=== PATIENT | male | born 1980 | race Caucasian/White ===

== ENCOUNTER 2017-02-21 10:04 | Emergency (ER) | payer OTHER ==
--- NOTE | 2017-02-21 12:43 | ED CLINICAL REPORT ---
Clinical Report - Physicians/Mid Levels [facility] [address] [place] [address] 02/21/2017 10:07 Patient: CHA HOFFMAN Time Seen: 10:38 Feb 21 2017. Arrived- By private vehicle. Historian- patient. CPT: ER phys charges level 4 (#[id number]). HISTORY OF PRESENT ILLNESS Chief Complaint: "GOT THE SHAKES". ; Has been on a 2 week binge. Wants to stop drinking. Pt in stating that he wants help with alcohol withdrawl. Pt states he is an alcoholicwas dry for 1 1/2 years and started again 2 weeks ago. Pt had been a heroin additct before that and switched to alcohol to get off the heroin). Symptoms started yesterday. Duration of substance abuse- about 2 weeks. Substances abused: Alcohol and marijuana. Last drink less than 12 hours ago. The patient has had nausea and tremors. No vomiting, diarrhea, abdominal pain or agitation. Not confused. The symptoms are described as moderate. No injuries noted. Similar symptoms previously: As bad. Withdrawal from narcotics or alcohol. Recent medical care: Not recently seen/assessed. REVIEW OF SYSTEMS No headache, dizziness, weakness, chest pain or palpitations. No black stools, sore throat, cough or difficulty breathing. No skin abscess or rash, joint pain, enlarged lymph nodes or epistaxis. No hematuria. No difficulty walking. Small amount of BRB in stool this morning. All systems otherwise negative, except as recorded above. PAST HISTORY Lifestyle / Substance Problems. Nasal Fracture. Scleral Laceration. Narcotic Withdrawal. Epistaxis. Syncope. Anxiety Reaction. Additional Surgeries: no known surgeries. Medications: None. Allergies: No Known Drug Allergy. SOCIAL HISTORY Heavy tobacco smoker (cigarette)- 1 pack per day. Alcohol use. Patient is a longstanding alcoholic. History of drug use: marijuana. ADDITIONAL NOTES The nursing notes have been reviewed. PHYSICAL EXAM Vital Signs: 02/21/2017 10:16 BP: 137/94. HR: 107. RR: 18. O2 saturation: 99%. Temp: 97.7 F. Pain level now: 5/10. Appearance: Alert. Patient in mild distress. Head: Head atraumatic. Eyes: Pupils equal, round and reactive to light. ENT: Normal ENT inspection. Airway intact. Dry mucous membranes present. Pharynx normal. Neck: Normal inspection. Neck supple. CVS: Tachycardia. Heart sounds normal. Pulses normal. Respiratory: No respiratory distress. Breath sounds normal. Abdomen: Soft. Mild tenderness in the epigastric area. Back: Normal inspection. Rectal: Rectal exam normal. Skin: Skin warm. Normal skin color. No rash. Extremities: Extremities exhibit normal ROM. No lower extremity edema. Neuro: Alert. Oriented X 3. Mood/affect normal. Speech normal. Cranial nerves normal (as tested). No cerebellar findings. No motor deficit. No sensory deficit. Reflexes normal. (Mild tremor at rest that is worse with intention.). LABS, X-RAYS, AND EKG Laboratory Tests: UA-Culture if indicated: (EMILY: 02/21/2017 11:50) ( [facility] 02/21/2017 12:24) Final results Test Result Flag Units (Reference) URINE COLOR YELLOW URINE APPEARANCE CLEAR URINE GLUCOSE NEGATIVE (NEGATIVE) URINE BILIRUBIN NEGATIVE (NEGATIVE) URINE KETONE NEGATIVE (NEGATIVE) URINE SPECIFIC GRAVITY <= 1.005 L (1.010-1.030) URINE PH 5.5 (5.0-8.0) URINE PROTEIN NEGATIVE (NEGATIVE) URINE UROBILINOGEN 0.2 EU/dL (0.2-1.0) URINE NITRITE NEGATIVE (NEGATIVE) URINE BLOOD NEGATIVE (NEGATIVE) URINE LEUK ESTERASE NEGATIVE (NEGATIVE) URINE RBC NONE SEEN rbc/hpf (0-1) URINE WBC NONE SEEN wbc/hpf (0-1) URINE EPITHELIAL CELLS NONE SEEN EPI/hpf (0-5) URINE BACTERIA NONE SEEN (NONE SEEN) URINE COMMENT CULT NOT INDICATED URINE CULTURES ARE SET-UP BASED ON THE FOLLOWING CRITERIA:POSITIVE NITRITEPOSITIVE LEUKOCYTE ESTERASEGREATER THAN 10 WHITE BLOOD CELLSMODERATE (2+) OR GREATER BACTERIA CBC w Diff: (EMILY: 02/21/2017 10:35) ( [facility] 02/21/2017 11:01) Final results Test Result Flag Units (Reference) WHITE BLOOD COUNT 6.1 K/uL (4.5-11.5) RED BLOOD COUNT 5.26 M/uL (4.50-5.90) HEMOGLOBIN 15.6 gm/dL (13.5-17.5) HEMATOCRIT 46.4 % (41.0-53.0) MEAN CELL VOLUME 88 fL (80-100) MEAN CORPUSCULAR HGB 30 pg (26-34) MEAN CORPUSCULAR HGB CONC 34 g/dL (31-37) RED CELL DISTRIBUTION WIDTH 14.0 % (11.6-14.8) PLATELET COUNT 206 K/uL (150-400) NEUTROPHIL % 69.0 % (50-75) LYMPH % 21.9 L % (25-40) MONO % 6.5 % (3-14) EOSINOPHIL % 2.0 % (0-4) BASOPHIL % 0.6 % (0-2) PT with INR: (EMILY: 02/21/2017 10:35) ( [facility] 02/21/2017 11:20) Final results Test Result Flag Units (Reference) INR 0.9 (0.8-1.2) Low Intensity Therapy: INR 1.5-2.0 PT range 18.5-23.1Mod.Intensity Therapy: INR 2.0-3.0 PT range 23.1-31.5High Intensity Therapy: INR 2.5-3.5 PT range 27.4-35.5High Intensity Therapy 2: INR 3.0-4.0 PT range 31.5-39.3 Urine Drug Screen: (EMILY: 02/21/2017 11:50) ( [facility] 02/21/2017 12:19) Final results Test Result Flag Units (Reference) AMPHETAMINE/METHAMPHETAMINE NEGATIVE (NEGATIVE) BARBITURATE NEGATIVE (NEGATIVE) BENZODIAZEPINE NEGATIVE (NEGATIVE) CANNABINOID NEGATIVE (NEGATIVE) COCAINE NEGATIVE (NEGATIVE) ECSTASY NEGATIVE (NEGATIVE) METHADONE NEGATIVE (NEGATIVE) OPIATE NEGATIVE (NEGATIVE) The urine drug screen is a qualitative screening test fordrug overdose and abuse. All screen results should beconsidered as presumptive.Drugs screened for are as follows:BenzodiazepinesCocaineAmphetamines/MetamphetaminesTHC (Tetrahydrocannabinol)OpiatesBarbituratesEcstasyMethadonePositive results are unconfirmed. For confirmation, notifythe lab for the specimen to be sent to the reference lab.All confirmations must be performed by a differentmethodology.The ingestion of natural herbal and plant productscontaining Ephedra/Ephedra metabolites can produce in urineone or more substances capable of cross reacting withamphetamine/methamphetamine immunoassays. These testsprovide a preliminary result only. A more specificalternative chemical method must be used to obtain aconfirmed analytical result. CHEM 13 PANEL: (EMILY: 02/21/2017 10:35) ( MsgRcvd 02/21/2017 11:59) Final results Test Result Flag Units (Reference) GLUCOSE 104 mg/dL (70-110) BUN 5 L mg/dL (7-18) CREATININE 0.7 mg/dL (0.6-1.3) Estimated GFR >60 mL/min Estimated GFR- >60 mL/min Note: Persistent reduction over 3 months in eGFR<60 mL/min/1.73 m2 defines CKD. Patients with eGFR values>=60 mL/min/1.73 m2 may also have CKD if evidence ofpersistent proteinuria. Additional information may be foundat www.kidney.org. SODIUM 145 mmol/L (136-145) POTASSIUM 4.2 mmol/L (3.5-5.1) CHLORIDE 107 mmol/L (98-107) CARBON DIOXIDE 25 mmol/L (21-32) CALCIUM 8.9 mg/dL (8.5-10.1) TOTAL PROTEIN 7.2 g/dL (6.4-8.2) ALBUMIN 3.9 g/dL (3.3-5.0) BILIRUBIN, TOTAL 0.4 mg/dL (0.0-1.0) ALKALINE PHOSPHATASE 84 U/L (46-116) AST (SGOT) 139 H U/L (15-37) ALT (SGPT) 63 U/L (12-78) MAGNESIUM 2.3 mg/dL (1.8-2.4) CPK 167 U/L (24-260) TROPONIN I <0.05 ng/mL (0.00-1.5) TROPONIN REFERENCE RANGE:<0.1 NEGATIVE0.1-1.5 INDETERMINANT>1.5 POSITIVE ETHYL ALCOHOL 264 H mg/dL (3-10) . PROGRESS AND PROCEDURES Course of Care: IV NS banana bag with thiamine 100 mg IV Clonidine 0.2mg patch Ativan 0.5 mg IV Patient has been in rehabilitation in the past. Has been to AA in the past as well. Has not been to AA recently. Patient/family counseled. Disposition: Discharged. Condition: stable. CLINICAL IMPRESSION Uncomplicated alcohol intoxication with alcohol dependence. No alcohol intoxication with delirium. Alcohol withdrawal with irritability and agitation. No delirium, hallucinations or delirium tremens. Acute alcoholic gastritis. No hemorrhagic gastritis. INSTRUCTIONS Stay with responsible adult family member (or other responsible adult). (Get to [facility] detox as soon as they have a bed. Get to AA 3 times a week. Wear clonidine patch for 1 week to help stop withdrawal.). Warnings: Further evaluation is necessary. GENERAL WARNINGS: Return or contact your physician immediately if your condition worsens or changes unexpectedly, if not improving as expected, or if other problems arise. Prescription Medications: Ativan 1 mg: take 1 orally every 6 hours as needed. Dispense ten (10). No refill. Substitution is permissible. (use as needed to slow down the tremors.) Carafate 1 gm tablets: take 1 orally four times daily (1 hour before meals and at bedtime). Dispense sixty (60). No refills. Substitution is permissible. Prilosec 20 mg capsules: Take 1 capsule orally once daily. Dispense fifteen (15). No refills. Substitution is permissible. Understanding of the discharge instructions verbalized by patient. Follow-up with: Jose Miller MD, [facility], , [address] [facility] [address] Follow up in one week. Call for an appointment. (Electronically signed by Jose Johnston MD 02/22/2017 7:43)
--- NOTE | 2017-02-21 12:43 | ED ORDER SUMMARY ---
..... Patient: CHA HOFFMAN OrderSheet [facility] VisitID: [id number] [address] [place] [address] 36y, M Registration Date/Time: 02/21/2017 ORDER SHEET Weight: 68.0 kg (stated) Allergies: No Known Drug Allergy GENERAL ORDERS: Cardiac Panel Stat (:02/21/2017 Eddy LINDSEY) (Ack 10:49 Valerio ER Tech1) (11:05 DDean R.N.) PT with INR Urgent (:02/21/2017 Eddy LINDSEY) (Ack 10:49 Valerio MARTINEZ Tech1) (11:05 DDean R.N.) UA-Culture if indicated Urgent (:02/21/2017 Eddy LINDSEY) (Ack 10:49 Valerio Galindo1) (12:04 DDean R.N.) Urine Drug Screen Urgent (:02/21/2017 Eddy LINDSEY) (Ack 10:49 Valerio MARTINEZ Tech1) (12:04 DDean R.N.) Ethyl Alcohol Urgent (:02/21/2017 Eddy LINDSEY) (Ack 10:49 Valerio MARTINEZ Tech1) (11:05 DDean R.N.) MEDICATION ORDERS: Clonidine Topical 0.2 mg (NOW) (:02/21/2017 Eddy LINDSEY) (Ack 10:51 DDean R.N.) (11:05 DDean R.N.) IV FLUIDS: IV NS with Normal Saline 1 Liter, Multivitamin Concentrate Intravenous 1 amp/L, Thiamine HCl 100 mg/L: initial bolus 1000 mL (1000 mL/hr), then 150 mL/hr for 4h (NOW); Routine (10:02/21/2017 Eddy LINDSEY) (Ack 10:51 DDean R.N.) (11:15 DDean R.N.) Ativan IV 0.5 mg (NOW) (:02/21/2017 Eddy LINDSEY) (Ack 10:51 DDean R.N.) (11:06 DDean R.N.) ORDER SHEET NOTES: [Electronically signed by Shelly Oh R.N. (13:17 02/21/2017)] [Electronically signed by Jose Johnston MD (07:43 02/22/2017)] [Electronically locked/signed by Shelly Oh R.N. (13:17 02/21/2017)]
--- NOTE | 2017-02-21 12:43 | ED ORDER SUMMARY ---
..... Patient: CHA HOFFMAN OrderSheet [facility] VisitID: [id number] [address] [place] [address] 36y, M Registration Date/Time: 02/21/2017 ORDER SHEET Weight: 68.0 kg (stated) Allergies: No Known Drug Allergy GENERAL ORDERS: Cardiac Panel Stat (:02/21/2017 Eddy LINDSEY) (Ack 10:49 Valerio ER Tech1) (11:05 DDean R.N.) PT with INR Urgent (:02/21/2017 Eddy LINDSEY) (Ack 10:49 Valerio MARTINEZ Tech1) (11:05 DDean R.N.) UA-Culture if indicated Urgent (:02/21/2017 Eddy LINDSEY) (Ack 10:49 Valerio Galindo1) (12:04 DDean R.N.) Urine Drug Screen Urgent (:02/21/2017 Eddy LINDSEY) (Ack 10:49 Valerio MARTINEZ Tech1) (12:04 DDean R.N.) Ethyl Alcohol Urgent (:02/21/2017 Eddy LINDSEY) (Ack 10:49 Valerio MARTINEZ Tech1) (11:05 DDean R.N.) MEDICATION ORDERS: Clonidine Topical 0.2 mg (NOW) (:02/21/2017 Eddy LINDSEY) (Ack 10:51 DDean R.N.) (11:05 DDean R.N.) IV FLUIDS: IV NS with Normal Saline 1 Liter, Multivitamin Concentrate Intravenous 1 amp/L, Thiamine HCl 100 mg/L: initial bolus 1000 mL (1000 mL/hr), then 150 mL/hr for 4h (NOW); Routine (10:02/21/2017 Eddy LINDSEY) (Ack 10:51 DDean R.N.) (11:15 DDean R.N.) Ativan IV 0.5 mg (NOW) (:02/21/2017 Eddy LINDSEY) (Ack 10:51 DDean R.N.) (11:06 DDean R.N.) ORDER SHEET NOTES: [Electronically signed by Shelly Oh R.N. (13:17 02/21/2017)] [Electronically signed by Jose Johnston MD (07:43 02/22/2017)] [Electronically locked/signed by Shelly Oh R.N. (13:17 02/21/2017)]
--- NOTE | 2017-02-21 12:43 | ED NURSING NOTES ---
Clinical Report - Nurses [facility] [address] [place] [address] 02/21/2017 10:07 Patient: CHA HOFFMAN TRIAGE Triage time 1012. Acuity: LEVEL 3. Chief Complaint: (Pt in stating that he wants help with alcohol withdrawl. Pt states he is an alcoholicwas dry for 1 1/2 years and started again 2 weeks ago. Pt had been a heroin additct before that and switched to alcohol to get off the heroin). HUGO COMA SCORE: Hugo Coma Scale: 15- eyes open spontaneously (4); best verbal response- oriented x 4 (5); best motor response- obeys commands (6). --10:25 Shelly Oh R.N. 10:16 02/21/17. BP: 137/94. HR: 107. RR: 18. O2 saturation: 99%. Temp: 97.7 F. Pain level now: 03/13. --10:25 Shelly Oh R.N. Weight: 68 kg stated. Height/Length: 71 inches Per Patient. BMI: 20.9. --10:16 Shelly Oh R.N. Medications None. --10:25 Shelly Oh R.N. Allergies No Known Drug Allergy. --10:25 Shelly Oh R.N. History Arrived by private vehicle. Historian: patient. Primary physician (Paul). ( Is willing to go to an in-hospital program). SURGERY HX: No history of previous surgery. SOCIAL HX: Heavy tobacco smoker (cigarette)- 1 pack per day. Alcohol use; consumes 12-pack of beer a day. History of drug use: marijuana. --10:25 Shelly Oh R.N. ( Pt states he has been having abd pain x 2 days "and I'm worried about my liver" pt denies N/V, did have blood in stool this am. also worried about tremors). --10:29 Shelly Oh R.N. 10:16. SELF HARM ASSESSMENT: A self harm assessment was performed. The patient answered "yes" to the question "Have you recently felt down, depressed, or hopeless?" and "Have you noticed less interest or pleasure in doing things?" and "no" to the question "Do you have thoughts of harming or killing yourself?", "Are you here because you tried to hurt yourself?", "Have you ever tried to hurt yourself before today?", "Have you recently had thoughts about harming or killing others?" and "Do you have any dangerous items in your possession?". --13:15 Shelly Oh R.N. PROBLEMS: Lifestyle / Substance Problems. Nasal Fracture. Scleral Laceration. Narcotic Withdrawal. Epistaxis. Syncope. Anxiety Reaction. --10:18 Shelly Oh R.N. ADDITIONAL SURGERIES: no known surgeries. Interventions ID band on patient. To treatment room. --10:25 Shelly Oh R.N. PHYSICAL ASSESSMENT 10:12. Ambulatory to room. Patient gowned. GENERAL / NEURO / PSYCH: Alert. Oriented X 4. Appears in no acute distress. Appears anxious. HEENT: Mucous membranes are pink. RESPIRATORY: Respirations not labored. CVS: Capillary refill less than 2 seconds. GI / : ( blood in stool this am). Abdomen soft. Abdominal tenderness. SKIN: Skin is warm and dry. --10:29 Shelly Oh R.N. NURSING PROGRESS NOTES 10:12. Patient gowned. Head of bed elevated. Reassurance given. Patient identifiers checked. Call light placed in reach. Side rails up. Bed placed in lowest position. Patient ready for evaluation- chart flagged. --10:26 Shelly Oh R.N. 10:40 02/21/2017 Site #1 started via IV in the left forearm with an 20g angiocath, with aseptic technique and good blood return; one attempt. Blood drawn: rainbow set. Labeled in the presence of the patient and sent to the lab. Saline lock flushed with 10 mL saline. --10:49 Shelly Oh R.N. 11:00 02/21/2017 Clonidine Topical Patch/Pad 0.2 mg. Applied to the left upper arm. --11:05 Shelly Oh R.N. 11:00 02/21/2017 Ativan (LORazepam) IVP 0.5 mg given over 1 minute(s) via site #1. Sedative warning given to the patient. IV patency established. IV site checked: no pain, redness, or swelling. IV flushed thoroughly pre- and post-medication administration. IVP given by RN. --11:06 Shelly Oh R.N. 11:15 02/21/2017 Started bag #1 1000 mL IV Fluids IV NS (Saline); at 1000 mL/hr over 1 hour(s) via site #1 via IV pump. IV patency established. IV site checked: no pain, redness, or swelling. IV flushed thoroughly pre- and post-medication administration (Thiamine 100mg, 1 amp multivits, added to liter by Pharmacy). --11:15 Shelly Oh R.N. 11:15 resting quietly, talking with sister on phone. --11:35 Shelly Oh R.N. 11:30 02/21/17. BP: 118/68. HR: 100. RR: 16. O2 saturation: 100%. Temp: deferred. Pain level now: 5/10. Additional comments: resting quietly in darkened room . --12:03 Shelly Oh R.N. 1150 Up to Bedside, voided 600cc light yellow urine, UA to lab. Patient ID band checked for patient name and birthdate: patient confirmed. Clean catch urine collected with return of yellow-colored clear urine; sample sent to lab for urinalysis, culture and drug screen. Specimen labeled in the presence of the patient. --12:04 Shelly Oh R.N. 12:20 02/21/2017 IV Fluids IV NS Bag Change: bag #1 infused. Total amount infused: 1000. STARTED bag #2 (1000 mL) at 150 mL/hr via IV pump. IV patency established. IV site checked: no pain, redness, or swelling. IV flushed thoroughly. --12:23 Shelly Oh R.N. 12:30. ( ERMD in to do rectal exam. Quiac Neg). --12:36 Shelly Oh R.N. 12:50 02/21/2017 Site #1 removed upon discharge. Bandaid applied. --13:16 Shelly Oh R.N. 12:50 02/21/2017 IV Fluids IV NS Discontinued: bag #2 STOPPED upon discharge. Total amount infused: 75 mL. IV patency established. IV site checked: no pain, redness, or swelling. IV flushed thoroughly. --13:16 Shelly Oh R.N. DISPOSITION / DISCHARGE 13:00. Condition at departure: improved and stable. No learning barriers present. Discharge instructions provided and reviewed with the patient. Reviewed medication(s) (ativan, prilosec, carafate). Reviewed referrals ([facility], [facility]). Patient verbalized understanding. Written instructions provided in Guamanian. The patient was discharged home and unaccompanied at time of discharge. He left the Emergency Department ambulatory and via (pt states he will walk home (less than 10 min)). HUGO COMA SCORE: Hugo Coma Scale: 15- eyes open spontaneously (4); best verbal response- oriented x 4 (5); best motor response- obeys commands (6). --13:08 Shelly Oh R.N. 13:00 02/21/17. BP: 112/67. HR: 96. RR: 16. O2 saturation: 97% on room air. Temp: deferred. Pain level now: 12/14. --13:08 Shelly Oh R.N. Locked/Released at 02/21/2017 13:17 by Shelly Oh R.N.
--- NOTE | 2017-02-22 07:43 | ED MED RECONCILIATION SUMMARY ---
Patient: CHA HOFFMAN Medication Reconciliation Report [facility] VisitID: [id number] [address] [place] [address] 36y, M Registration Date/Time: 02/21/2017 Weight: 68.0 kg Height/Length: 71 in. BMI: 20.9 ALLERGIES: No Known Drug Allergy The patient's Home Medications are listed below: NONE. The source(s) of the original Home Medication information: Not obtained. The following Medications were given to the patient in the Emergency Department: Clonidine [Topical] Topical 0.2 mg, administered: 02/21/2017 11:00:00 AM Ativan [IVP] IVP 0.5 mg, administered: 02/21/2017 11:00:00 AM IV NS IV Fluids bolus 0, then 1000 mL/hr, administered: 02/21/2017 11:15:00 AM The following Medications were prescribed to the patient: Ativan 1 mg: take 1 orally every 6 hours as needed. Dispense ten (10). No refill. Substitution is permissible.(use as needed to slow down the tremors.) -- Jose Johnston MD Carafate 1 gm tablets: take 1 orally four times daily (1 hour before meals and at bedtime). Dispense sixty (60). No refills. Substitution is permissible. -- Jose Johnston MD Prilosec 20 mg capsules: Take 1 capsule orally once daily. Dispense fifteen (15). No refills. Substitution is permissible. -- Jose Johnston MD
--- NOTE | 2017-02-22 07:43 | ED MED RECONCILIATION SUMMARY ---
Patient: CHA HOFFMAN Medication Reconciliation Report [facility] VisitID: [id number] [address] [place] [address] 36y, M Registration Date/Time: 02/21/2017 Weight: 68.0 kg Height/Length: 71 in. BMI: 20.9 ALLERGIES: No Known Drug Allergy The patient's Home Medications are listed below: NONE. The source(s) of the original Home Medication information: Not obtained. The following Medications were given to the patient in the Emergency Department: Clonidine [Topical] Topical 0.2 mg, administered: 02/21/2017 11:00:00 AM Ativan [IVP] IVP 0.5 mg, administered: 02/21/2017 11:00:00 AM IV NS IV Fluids bolus 0, then 1000 mL/hr, administered: 02/21/2017 11:15:00 AM The following Medications were prescribed to the patient: Ativan 1 mg: take 1 orally every 6 hours as needed. Dispense ten (10). No refill. Substitution is permissible.(use as needed to slow down the tremors.) -- Jose Johnston MD Carafate 1 gm tablets: take 1 orally four times daily (1 hour before meals and at bedtime). Dispense sixty (60). No refills. Substitution is permissible. -- Jose Johnston MD Prilosec 20 mg capsules: Take 1 capsule orally once daily. Dispense fifteen (15). No refills. Substitution is permissible. -- Jose Johnston MD
--- NOTE | 2017-02-22 07:43 | ED MAR SUMMARY ---
..... Medication Administration Record [facility] [address] [place] [address] Patient: CHA HOFFMAN Visit ID: [id number] 36y, M Weight: 68.0 kg Height/Length: 71 in BMI: 20.9 ALLERGIES: No Known Drug Allergy Given 11:00 02/21/2017 Shelly Oh R.N. Medication Administered: CLONIDINE [TOPICAL], Dose: 0.2 mg Patch/Pad Topical. Medication Ordered: Clonidine Topical 0.2 mg (NOW). Given 11:00 02/21/2017 Shelly Oh R.N. Medication Administered: ATIVAN [IVP] (LORAZEPAM), Dose: 0.5 mg IVP over 1 minute(s), Site: #1 left forearm. Medication Ordered: Ativan IV 0.5 mg (NOW). Start 11:15 02/21/2017 Shelly Oh R.N., Stop 12:50 02/21/2017 Shelly Oh R.N. Medication Administered: IV NS (SALINE), Dose: IV Fluids over 1 hour(s), Rate: 1000 mL/hr, Dispensed: 1000 mL bag, Site: #1 left forearm. Medication Ordered: IV NS with Normal Saline 1 Liter, Multivitamin Concentrate Intravenous 1 amp/L, Thiamine HCl 100 mg/L: initial bolus 1000 mL (1000 mL/hr), then 150 mL/hr for 4h (NOW); Routine.
--- NOTE | 2017-02-22 07:43 | ED DISCHARGE INSTRUCTIONS ---
Patient: CHA HOFFMAN General Instructions [facility] VisitID: [id number] [address] [place], [place] [id number] 36y, M Registration Date/Time: 02/21/2017 Uncomplicated alcohol intoxication with alcohol dependence. No alcohol intoxication with delirium. Alcohol withdrawal with irritability and agitation. No delirium, hallucinations or delirium tremens. Acute alcoholic gastritis. No hemorrhagic gastritis. INSTRUCTIONS Stay with responsible adult family member (or other responsible adult). (Get to [facility] as soon as they have a bed. Get to AA 3 times a week. Wear clonidine patch for 1 week to help stop withdrawal.). Warnings: Further evaluation is necessary. GENERAL WARNINGS: Return or contact your physician immediately if your condition worsens or changes unexpectedly, if not improving as expected, or if other problems arise. Prescription Medications: Ativan 1 mg: take 1 orally every 6 hours as needed. Dispense ten (10). No refill. Substitution is permissible. (use as needed to slow down the tremors.) Carafate 1 gm tablets: take 1 orally four times daily (1 hour before meals and at bedtime). Dispense sixty (60). No refills. Substitution is permissible. Prilosec 20 mg capsules: Take 1 capsule orally once daily. Dispense fifteen (15). No refills. Substitution is permissible. Understanding of the discharge instructions verbalized by patient. Follow-up with: Jose Miller MD, [facility], , [address] [place] [address] Follow up in one week. Call for an appointment. ADDITIONAL INFORMATION Alcohol Intoxication Alcohol intoxication occurs when you drink alcohol faster than your liver can remove it from your system. Alcohol intoxication affects your judgment and coordination. Very high blood alcohol levels can cause coma, very slow breathing and even . If you drink alcohol every day, this may gradually cause permanent damage to your liver, brain, heart, pancreas and other organs. Alcohol use during may cause permanent damage to the growing baby. Home Care: Do not drink any more alcohol. DO NOT DRIVE until all effects of the alcohol have worn off. Get lots of rest over the next few days. Drink plenty of water and other non-alcoholic liquids. Try to eat regular meals. If you have been drinking heavily on a daily basis, you may go through alcohol withdrawl. This is also called the shakes or DTs. The usual symptoms last 3 to 4 days and may include nervousness, shakiness, nausea, sweating or sleeplessness. During this time, it is best that you stay with family or friends who can help and support you. You can also admit yourself to a residential detox program. If your symptoms are severe, contact your doctor for medicines to help. Follow Up: If alcohol is causing a problem in your life, these and other organizations can help you: [employer] offers support through a self-help fellowship. There are no dues or fees. See the Yellow Pages and call for time and place of meetings. www.aa.org [employer] offers support to families of alcohol users. 427.593.5927 www.al-anon.org [employer] [place] On Alcoholism And Drug Dependence 305-116-9826 www.ncadd.org There are also inpatient or residential alcohol detox programs. Check the Internet or phonebook Yellow Pages under Drug Abuse & Treatment Centers. Get Prompt Medical Attention if any of the following occur: there) Alcohol Withdrawal Alcohol withdrawal symptoms occur if you have been drinking steadily for at least several days, and your body gets used to the effect of alcohol. When you suddenly stop drinking (or, even just cut down your daily intake but continue to drink), you may develop alcohol withdrawal, also called the The usual symptoms last 3-4 days and include nervousness, shakiness, nausea, sweating, sleeplessness. In severe cases hallucinations (seeing things that are not there) and seizures can occur. Home Care: You will need plenty of rest and fluids over the next several days. Eat regular meals. Of course, do not drink any more alcohol. During this time, it is best that you stay with family or friends who can help and support you. You can also admit yourself to a residential detox program. Do not drive until all symptoms are gone and you are feeling better. If you were given sedative medication to reduce your symptoms, do not take it more often than prescribed and never take it with alcohol. Follow Up: Once you have gone through the withdrawal symptoms, you have fought half of the squires. To avoid the risk of returning to your previous drinking pattern, it is essential that you get follow-up support and treatment. [employer] offers support through a self-help fellowship. There are no dues or fees. See the Yellow Pages and call for time and place of meetings. www.aa.org [employer] offers support to families of alcohol users. 808.389.3851 www.al-anon.org [employer] [place] [employer] Alcoholism And Drug Dependence 326-900-3488 www.ncadd.org Residential alcohol detox programs are available. Check the Yellow Pages under Drug Abuse & Treatment Centers. Get Prompt Medical Attention if any of the following occur: Severe shakiness Hallucinations Seizure Fever over 100.5 F (38.0 C) oral Headache, confusion, extreme drowsiness, inability to awaken Increasing upper abdominal pain Repeated vomiting or vomiting blood Gastritis (Adult) Gastritis is an irritation of the stomach lining. It can be acute (recent) or chronic (lasting a long time). Gastritis can be caused by overuse of alcohol or anti-inflammatory medications (such as aspirin, ibuprofen, or prednisone). H pyloriinfection can also cause chronic gastritis. Gastritis can cause a dull ache or burning pain in the upper abdomen. Other symptoms include nausea, vomiting, loss of appetite, and belching or bloating. Blood in the vomit or stools (red or black) is a sign of bleeding in the stomach. This requires immediate medical attention. Tests for H pyloriare used to screen for bacterial infection. If no infection is found, gastritis can be treated by stopping the cause and treating with antacids plus an acid ryan medication. If H pylori infection is found, antibiotics will also be prescribed. Persons 55 years and older may undergo other tests before treatment is started. Two common tests are used to evaluate your symptoms. An upper GI series is an x-ray taken after you drink a chalky liquid called barium. This coats the stomach and allows the doctor to view any problems in the stomach on the x-ray. Another test is called endoscopy, during which a long thin tube called an endoscope is passed down your throat to the stomach. A camera at the end of the scope allows the doctor to view inside the stomach to check the cause of your symptoms. Home Care: Take the prescribed acid ryan medication for the full course of treatment even if you begin to feel better sooner. This medication can take up to several days to fully control your symptoms. If you cant afford the prescribed medication, you can try [id number]-luj-ozmfhra acid blockers, such as Pepcid AC, Tagamet, Zantac, or Aciphex. If these do not relieve your symptoms, a stronger acid-ryan can be tried, such as Prilosec OTC. If you have been prescribed an antibiotic to treat H pyloriinfection, finish the full course of medication. Do so even if you begin to feel better sooner. If you stop the medication too soon, the infection can return and be harder to treat. You can use antacids, such as Tums, Rolaids, Mylanta, or Maalox, for pain. This will be useful the first few days after starting acid blockers when the blockers havent started working yet. Follow the directions on the label. Liquid antacids may work better than tablets. Note that antacids can interfere with absorption of certain medications. Specifically, do not take Tagamet (cimetidine), Zantac (ranitidine), or Carafate (sucralfate) within 1 hour of taking an antacid. Talk with your pharmacist if you have any questions. Symptoms of gastritis can be worsened by certain foods. Limit or avoid fatty, fried, and spicy foods, as well as coffee, chocolate, mint, and foods with high acid content such as tomatoes and citrus fruit and juices (orange, grapefruit, lemon). Avoid alcohol, caffeine, and tobacco, which can delay healing. Avoid aspirin and anti-inflammatory medications such as ibuprofen (Advil, Motrin) and naproxen (Naprosyn, Aleve). Acetaminophen (Tylenol) is safe to use. Do not take more than the amount listed on the label. Follow Up with your doctor, or as advised by our staff. Further testing may be needed. If you do not improve over the next 4 days, contact your doctor. If you had an x-ray, CT scan, or ECG (electrocardiogram), it will be reviewed by a specialist. Youll be notified of any new findings that affect your care. Get Prompt Medical Attention if any of the following occur: Stomach pain gets worse or moves to the lower right abdomen (appendix area) Chest pain appears or gets worse, or spreads to the back, neck, shoulder, or arm Frequent vomiting (cant keep down liquids) Blood in the stool or vomit (red or black in color) Feeling weak or dizzy, fainting, or trouble breathing Fever of 100.4F (38C) or higher, or as directed by your healthcare provider Lorazepam Oral tablet What is this medicine? LORAZEPAM (marla A ze herlinda) is a benzodiazepine. It is used to treat anxiety. How should I use this medicine? Take this medicine by mouth with a glass of water. Follow the directions on the prescription label. If it upsets your stomach, take it with food or milk. Take your medicine at regular intervals. Do not take it more often than directed. Do not stop taking except on the advice of your doctor or health manager long term care. Talk to your business enterprise officer regarding the use of this medicine in children. Special care may be needed. What side effects may I notice from receiving this medicine? Side effects that you should report to your doctor or health manager long term care as soon as possible: changes in vision confusion depression mood changes, excitability or aggressive behavior movement difficulty, staggering or jerky movements muscle cramps restlessness weakness or tiredness Side effects that usually do not require medical attention (report to your doctor or health manager long term care if they continue or are bothersome): constipation or diarrhea difficulty sleeping, nightmares dizziness, drowsiness headache nausea, vomiting What may interact with this medicine? barbiturate medicines for inducing sleep or treating seizures, like phenobarbital clozapine medicines for depression, mental problems or psychiatric disturbances medicines for sleep phenytoin probenecid theophylline valproic acid What if I miss a dose? If you miss a dose, take it as soon as you can. If it is almost time for your next dose, take only that dose. Do not take double or extra doses. Where should I keep my medicine? Keep out of the reach of children. This medicine can be abused. Keep your medicine in a safe place to protect it from theft. Do not share this medicine with anyone. Selling or giving away this medicine is dangerous and against the law. Store at room temperature between 20 and 25 degrees C (68 and 77 degrees F). Protect from light. Keep container tightly closed. Throw away any unused medicine after the expiration date. What should I tell my health care provider before I take this medicine? They need to know if you have any of these conditions: alcohol or drug abuse problem bipolar disorder, depression, psychosis or other mental health condition glaucoma kidney or liver disease lung disease or breathing difficulties myasthenia gravis Parkinson's disease seizures or a history of seizures suicidal thoughts an unusual or allergic reaction to lorazepam, other benzodiazepines, foods, dyes, or preservatives or trying to get breast-feeding What should I watch for while using this medicine? Visit your doctor or health manager long term care for regular checks on your progress. Your body may become dependent on this medicine, ask your doctor or health manager long term care if you still need to take it. However, if you have been taking this medicine regularly for some time, do not suddenly stop taking it. You must gradually reduce the dose or you may get severe side effects. Ask your doctor or health manager long term care for advice before increasing or decreasing the dose. Even after you stop taking this medicine it can still affect your body for several days. You may get drowsy or dizzy. Do not drive, use machinery, or do anything that needs mental alertness until you know how this medicine affects you. To reduce the risk of dizzy and fainting spells, do not stand or sit up quickly, especially if you are an older patient. Alcohol may increase dizziness and drowsiness. Avoid alcoholic drinks. Do not treat yourself for coughs, colds or allergies without asking your doctor or health manager long term care for advice. Some ingredients can increase possible side effects. You have been given the following additional information: Alcohol Intoxication Alcohol Withdrawal Gastritis (Adult) Lorazepam Oral tablet Stay with responsible adult family member (or other responsible adult). (Electronically signed by Jose Johnston MD 02/22/2017 7:43)
--- NOTE | 2017-02-22 07:43 | ED MAR SUMMARY ---
..... Medication Administration Record [facility] [address] [place] [address] Patient: CHA HOFFMAN Visit ID: [id number] 36y, M Weight: 68.0 kg Height/Length: 71 in BMI: 20.9 ALLERGIES: No Known Drug Allergy Given 11:00 02/21/2017 Shelly Oh R.N. Medication Administered: CLONIDINE [TOPICAL], Dose: 0.2 mg Patch/Pad Topical. Medication Ordered: Clonidine Topical 0.2 mg (NOW). Given 11:00 02/21/2017 Shelly Oh R.N. Medication Administered: ATIVAN [IVP] (LORAZEPAM), Dose: 0.5 mg IVP over 1 minute(s), Site: #1 left forearm. Medication Ordered: Ativan IV 0.5 mg (NOW). Start 11:15 02/21/2017 Shelly Oh R.N., Stop 12:50 02/21/2017 Shelly Oh R.N. Medication Administered: IV NS (SALINE), Dose: IV Fluids over 1 hour(s), Rate: 1000 mL/hr, Dispensed: 1000 mL bag, Site: #1 left forearm. Medication Ordered: IV NS with Normal Saline 1 Liter, Multivitamin Concentrate Intravenous 1 amp/L, Thiamine HCl 100 mg/L: initial bolus 1000 mL (1000 mL/hr), then 150 mL/hr for 4h (NOW); Routine.
--- NOTE | 2017-02-22 07:43 | ED DISCHARGE INSTRUCTIONS ---
Patient: CHA HOFFMAN General Instructions [facility] VisitID: [id number] [address] [place], [place] [id number] 36y, M Registration Date/Time: 02/21/2017 Uncomplicated alcohol intoxication with alcohol dependence. No alcohol intoxication with delirium. Alcohol withdrawal with irritability and agitation. No delirium, hallucinations or delirium tremens. Acute alcoholic gastritis. No hemorrhagic gastritis. INSTRUCTIONS Stay with responsible adult family member (or other responsible adult). (Get to [facility] as soon as they have a bed. Get to AA 3 times a week. Wear clonidine patch for 1 week to help stop withdrawal.). Warnings: Further evaluation is necessary. GENERAL WARNINGS: Return or contact your physician immediately if your condition worsens or changes unexpectedly, if not improving as expected, or if other problems arise. Prescription Medications: Ativan 1 mg: take 1 orally every 6 hours as needed. Dispense ten (10). No refill. Substitution is permissible. (use as needed to slow down the tremors.) Carafate 1 gm tablets: take 1 orally four times daily (1 hour before meals and at bedtime). Dispense sixty (60). No refills. Substitution is permissible. Prilosec 20 mg capsules: Take 1 capsule orally once daily. Dispense fifteen (15). No refills. Substitution is permissible. Understanding of the discharge instructions verbalized by patient. Follow-up with: Jose Miller MD, [facility], , [address] [place] [address] Follow up in one week. Call for an appointment. ADDITIONAL INFORMATION Alcohol Intoxication Alcohol intoxication occurs when you drink alcohol faster than your liver can remove it from your system. Alcohol intoxication affects your judgment and coordination. Very high blood alcohol levels can cause coma, very slow breathing and even . If you drink alcohol every day, this may gradually cause permanent damage to your liver, brain, heart, pancreas and other organs. Alcohol use during may cause permanent damage to the growing baby. Home Care: Do not drink any more alcohol. DO NOT DRIVE until all effects of the alcohol have worn off. Get lots of rest over the next few days. Drink plenty of water and other non-alcoholic liquids. Try to eat regular meals. If you have been drinking heavily on a daily basis, you may go through alcohol withdrawl. This is also called the shakes or DTs. The usual symptoms last 3 to 4 days and may include nervousness, shakiness, nausea, sweating or sleeplessness. During this time, it is best that you stay with family or friends who can help and support you. You can also admit yourself to a residential detox program. If your symptoms are severe, contact your doctor for medicines to help. Follow Up: If alcohol is causing a problem in your life, these and other organizations can help you: [employer] offers support through a self-help fellowship. There are no dues or fees. See the Yellow Pages and call for time and place of meetings. www.aa.org [employer] offers support to families of alcohol users. 762.549.7555 www.al-anon.org [employer] [place] On Alcoholism And Drug Dependence 563-485-0405 www.ncadd.org There are also inpatient or residential alcohol detox programs. Check the Internet or phonebook Yellow Pages under Drug Abuse & Treatment Centers. Get Prompt Medical Attention if any of the following occur: there) Alcohol Withdrawal Alcohol withdrawal symptoms occur if you have been drinking steadily for at least several days, and your body gets used to the effect of alcohol. When you suddenly stop drinking (or, even just cut down your daily intake but continue to drink), you may develop alcohol withdrawal, also called the The usual symptoms last 3-4 days and include nervousness, shakiness, nausea, sweating, sleeplessness. In severe cases hallucinations (seeing things that are not there) and seizures can occur. Home Care: You will need plenty of rest and fluids over the next several days. Eat regular meals. Of course, do not drink any more alcohol. During this time, it is best that you stay with family or friends who can help and support you. You can also admit yourself to a residential detox program. Do not drive until all symptoms are gone and you are feeling better. If you were given sedative medication to reduce your symptoms, do not take it more often than prescribed and never take it with alcohol. Follow Up: Once you have gone through the withdrawal symptoms, you have fought half of the squires. To avoid the risk of returning to your previous drinking pattern, it is essential that you get follow-up support and treatment. [employer] offers support through a self-help fellowship. There are no dues or fees. See the Yellow Pages and call for time and place of meetings. www.aa.org [employer] offers support to families of alcohol users. 756.101.3626 www.al-anon.org [employer] [place] On Alcoholism And Drug Dependence 057-509-3795 www.ncadd.org Residential alcohol detox programs are available. Check the Yellow Pages under Drug Abuse & Treatment Centers. Get Prompt Medical Attention if any of the following occur: Severe shakiness Hallucinations Seizure Fever over 100.5 F (38.0 C) oral Headache, confusion, extreme drowsiness, inability to awaken Increasing upper abdominal pain Repeated vomiting or vomiting blood Gastritis (Adult) Gastritis is an irritation of the stomach lining. It can be acute (recent) or chronic (lasting a long time). Gastritis can be caused by overuse of alcohol or anti-inflammatory medications (such as aspirin, ibuprofen, or prednisone). H pyloriinfection can also cause chronic gastritis. Gastritis can cause a dull ache or burning pain in the upper abdomen. Other symptoms include nausea, vomiting, loss of appetite, and belching or bloating. Blood in the vomit or stools (red or black) is a sign of bleeding in the stomach. This requires immediate medical attention. Tests for H pyloriare used to screen for bacterial infection. If no infection is found, gastritis can be treated by stopping the cause and treating with antacids plus an acid ryan medication. If H pylori infection is found, antibiotics will also be prescribed. Persons 55 years and older may undergo other tests before treatment is started. Two common tests are used to evaluate your symptoms. An upper GI series is an x-ray taken after you drink a chalky liquid called barium. This coats the stomach and allows the doctor to view any problems in the stomach on the x-ray. Another test is called endoscopy, during which a long thin tube called an endoscope is passed down your throat to the stomach. A camera at the end of the scope allows the doctor to view inside the stomach to check the cause of your symptoms. Home Care: Take the prescribed acid ryan medication for the full course of treatment even if you begin to feel better sooner. This medication can take up to several days to fully control your symptoms. If you cant afford the prescribed medication, you can try [id number]-[id number]-tahlufo acid blockers, such as Pepcid AC, Tagamet, Zantac, or Aciphex. If these do not relieve your symptoms, a stronger acid-ryan can be tried, such as Prilosec OTC. If you have been prescribed an antibiotic to treat H pyloriinfection, finish the full course of medication. Do so even if you begin to feel better sooner. If you stop the medication too soon, the infection can return and be harder to treat. You can use antacids, such as Tums, Rolaids, Mylanta, or Maalox, for pain. This will be useful the first few days after starting acid blockers when the blockers havent started working yet. Follow the directions on the label. Liquid antacids may work better than tablets. Note that antacids can interfere with absorption of certain medications. Specifically, do not take Tagamet (cimetidine), Zantac (ranitidine), or Carafate (sucralfate) within 1 hour of taking an antacid. Talk with your pharmacist if you have any questions. Symptoms of gastritis can be worsened by certain foods. Limit or avoid fatty, fried, and spicy foods, as well as coffee, chocolate, mint, and foods with high acid content such as tomatoes and citrus fruit and juices (orange, grapefruit, lemon). Avoid alcohol, caffeine, and tobacco, which can delay healing. Avoid aspirin and anti-inflammatory medications such as ibuprofen (Advil, Motrin) and naproxen (Naprosyn, Aleve). Acetaminophen (Tylenol) is safe to use. Do not take more than the amount listed on the label. Follow Up with your doctor, or as advised by our staff. Further testing may be needed. If you do not improve over the next 4 days, contact your doctor. If you had an x-ray, CT scan, or ECG (electrocardiogram), it will be reviewed by a specialist. Youll be notified of any new findings that affect your care. Get Prompt Medical Attention if any of the following occur: Stomach pain gets worse or moves to the lower right abdomen (appendix area) Chest pain appears or gets worse, or spreads to the back, neck, shoulder, or arm Frequent vomiting (cant keep down liquids) Blood in the stool or vomit (red or black in color) Feeling weak or dizzy, fainting, or trouble breathing Fever of 100.4F (38C) or higher, or as directed by your healthcare provider Lorazepam Oral tablet What is this medicine? LORAZEPAM (marla A ze herlinda) is a benzodiazepine. It is used to treat anxiety. How should I use this medicine? Take this medicine by mouth with a glass of water. Follow the directions on the prescription label. If it upsets your stomach, take it with food or milk. Take your medicine at regular intervals. Do not take it more often than directed. Do not stop taking except on the advice of your doctor or health animal care assistant. Talk to your computer numerical control grinder regarding the use of this medicine in children. Special care may be needed. What side effects may I notice from receiving this medicine? Side effects that you should report to your doctor or health animal care assistant as soon as possible: changes in vision confusion depression mood changes, excitability or aggressive behavior movement difficulty, staggering or jerky movements muscle cramps restlessness weakness or tiredness Side effects that usually do not require medical attention (report to your doctor or health animal care assistant if they continue or are bothersome): constipation or diarrhea difficulty sleeping, nightmares dizziness, drowsiness headache nausea, vomiting What may interact with this medicine? barbiturate medicines for inducing sleep or treating seizures, like phenobarbital clozapine medicines for depression, mental problems or psychiatric disturbances medicines for sleep phenytoin probenecid theophylline valproic acid What if I miss a dose? If you miss a dose, take it as soon as you can. If it is almost time for your next dose, take only that dose. Do not take double or extra doses. Where should I keep my medicine? Keep out of the reach of children. This medicine can be abused. Keep your medicine in a safe place to protect it from theft. Do not share this medicine with anyone. Selling or giving away this medicine is dangerous and against the law. Store at room temperature between 20 and 25 degrees C (68 and 77 degrees F). Protect from light. Keep container tightly closed. Throw away any unused medicine after the expiration date. What should I tell my health care provider before I take this medicine? They need to know if you have any of these conditions: alcohol or drug abuse problem bipolar disorder, depression, psychosis or other mental health condition glaucoma kidney or liver disease lung disease or breathing difficulties myasthenia gravis Parkinson's disease seizures or a history of seizures suicidal thoughts an unusual or allergic reaction to lorazepam, other benzodiazepines, foods, dyes, or preservatives or trying to get breast-feeding What should I watch for while using this medicine? Visit your doctor or health animal care assistant for regular checks on your progress. Your body may become dependent on this medicine, ask your doctor or health animal care assistant if you still need to take it. However, if you have been taking this medicine regularly for some time, do not suddenly stop taking it. You must gradually reduce the dose or you may get severe side effects. Ask your doctor or health animal care assistant for advice before increasing or decreasing the dose. Even after you stop taking this medicine it can still affect your body for several days. You may get drowsy or dizzy. Do not drive, use machinery, or do anything that needs mental alertness until you know how this medicine affects you. To reduce the risk of dizzy and fainting spells, do not stand or sit up quickly, especially if you are an older patient. Alcohol may increase dizziness and drowsiness. Avoid alcoholic drinks. Do not treat yourself for coughs, colds or allergies without asking your doctor or health animal care assistant for advice. Some ingredients can increase possible side effects. You have been given the following additional information: Alcohol Intoxication Alcohol Withdrawal Gastritis (Adult) Lorazepam Oral tablet Stay with responsible adult family member (or other responsible adult). (Electronically signed by Jose Johnston MD 02/22/2017 7:43)
== END 2017-02-21 13:00 | disposition home or self-care (01) ==
LOC: ED SRH 10:04
DX: F10.239 Alcohol dependence with withdrawal, unspecified (principal); K29.20 Alcoholic gastritis without bleeding; F10.220 Alcohol dependence with intoxication, uncomplicated; R45.1 Restlessness and agitation; R45.4 Irritability and anger; F17.210 Nicotine dependence, cigarettes, uncomplicated
CPT/HCPCS: 90004; 90100; 90616; 92010; 92610; 92720; 92760; 92761; 92762; 92763; 92764; 92765; 92766; 92767; 94060; 95059